=== PATIENT | male | born 1975 | race Caucasian/White ===

== ENCOUNTER 2018-06-22 17:47 | Emergency (ER) | payer OTHER ==
--- NOTE | 2018-06-22 18:34 | ED ---
Throat Pain/Nasal Congestion - HPI Summary HPI Summary: This patient is a 42 year old M presenting to ED with a chief complaint of swelling of the upper lip since earlier today after work. The patient takes lisinopril. The CC is described as tingling and swollen. Prior treatment includes 25 mg Benadryl. The patient rates the pain 0/10 in severity. Symptoms aggravated by nothing. Symptoms alleviated by nothing. Patient denies pruritus of the lip. - History of Current Complaint Chief Complaint: EDAllergicReaction Time Seen by Provider: 06/22/18 18:18 Hx Obtained From: Patient Onset/Duration: Sudden Onset, Lasting Hours - since earlier today after work, Still Present - Allergies/Home Medications Allergies/Adverse Reactions: Allergies Allergy/AdvReac Type Severity Reaction Status Date / Time sertraline [From Zoloft] Allergy Mild lethargic Verified 06/22/18 18:10 Home Medications: Home Medications Levocetirizine Dihydrochloride 5 mg PO DAILY 06/22/18 [History Confirmed ] Montelukast Sodium TAB* [Singulair 10 MG TAB*] 10 mg PO DAILY 06/22/18 [History Confirmed 06/22/18] Pantoprazole Sodium [Protonix] 20 mg PO DAILY 06/22/18 [History Confirmed ] buPROPion TAB* [Wellbutrin TAB*] PO DAILY 06/22/18 [History] metFORMIN* [Glucophage 500 MG TAB *] 500 mg PO DAILY 06/22/18 [History Confirmed 06/22/18] PMH/Surg Hx/FS Hx/Imm Hx Endocrine/Hematology History: Reports: Hx Diabetes GI History: Reports: Other GI Disorders - Gall stone pancreatitis - Immunization History Immunizations Up to Date: Yes Infectious Disease History: No Infectious Disease History: Denies: Traveled Outside the [place] in Last 30 Days - Family History Known Family History: Positive: Other Family History: No known allergy to lisinopril - Social History Alcohol Use: None Substance Use Type: Reports: None Smoking Status (MU): Never Smoked Tobacco Review of Systems Negative: Fever Positive: Other - swelling of upper lip (tingling and swollen; not pruritus) All Other Systems Reviewed And Are Negative: Yes Physical Exam - Summary Physical Exam Summary: Appearance: Well appearing, no pain distress Skin: warm, dry, reflects adequate perfusion Head/face: normal Eyes: EOMI, KIMBERLEE ENT: normal Neck: supple, non-tender Respiratory: CTA, breath sounds present Cardiovascular: RRR, pulses symmetrical Abdomen: non-tender, soft Bowel Sounds: present Musculoskeletal: normal, strength/ROM intact Neuro: normal, sensory motor intact, A&Ox3 Triage Information Reviewed: Yes Vital Signs On Initial Exam: Initial Vitals Temp Pulse Resp BP Pulse Ox 97.4 F 90 16 137/95 97 06/22/18 17:50 06/22/18 17:50 06/22/18 17:50 06/22/18 17:50 06/22/18 17:50 Vital Signs Reviewed: Yes Diagnostics - Vital Signs Vital Signs Temp Pulse Resp BP Pulse Ox 06/22/18 17:50 97.4 F 90 16 137/95 97 - Laboratory Lab Statement: Any lab studies that have been ordered have been reviewed, and results considered in the medical decision making process. 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 He is on lisinopril which is likely causative of this angioedema. He has no other symptoms and in fact, didn't notice the swelling until he got to work and was told by coworkers. He has been taking Benadryl without any effect. He has no tongue or airway swelling. There were no hives or other allergic type symptoms. We stopped his lisinopril in favor of losartan and will have him follow-up with primary care closely for blood pressure recheck. He was also given a single dose of steroids here and Pepcid. We do not expect that this will cause great benefit. - Differential Diagnoses Differential Diagnoses: Other - Allergic reaction versus NITESH inhibitor angioedema - Diagnoses Provider Diagnoses: NITESH inhibitor-aggravated angioedema, Adverse effects of medication Discharge - Sign-Out/Discharge Documenting (check all that apply): Patient Departure - Discharge Plan Condition: Improved Disposition: HOME Prescriptions: Losartan Potassium [Cozaar] 50 mg PO DAILY #30 tablet Patient Education Materials: Angioedema (ED) Referrals: Gino Strong MD [Primary Care Provider] - Additional Instructions: STOP Lisinopril. Return with increased swelling, difficulty breathing, worse, new symptoms or other concerns. Call Your doctor first thing in the morning to have blood pressure rechecked on new medication. - Billing Disposition and Condition Condition: IMPROVED Disposition: Home - Attestation Statements Document Initiated by Scribe: Yes Documenting Scribe: Pascual Mary Provider For Whom Scribe is Documenting (Include Credential): Rui Barbour MD Scribe Attestation: I, Pascual Mary, scribed for Riu Barbour MD on 06/22/18 at 1920. Scribe Documentation Reviewed: Yes Provider Attestation: The documentation as recorded by the Pascual boothe accurately reflects the service I personally performed and the decisions made by me, Rui Barbour MD
[2018-06-22] MEDS ORDERED: Famotidine TAB* 20 MG PO ONE (18:39)
[2018-06-22] MEDS ORDERED: Dexamethasone TAB* 4 MG PO ONE (18:39)
[2018-06-22 19:00] VITALS: BP 131/87
== END 2018-06-22 18:59 | disposition home or self-care (01) ==
LOC: ED 17:47
DX: T78.3XXA Angioneurotic edema, initial encounter (principal); T46.4X5A Adverse effect of angiotensin-converting-enzyme inhibitors, initial encounter; Y92.9 Unspecified place or not applicable; E11.9 Type 2 diabetes mellitus without complications; Z79.84 Long term (current) use of oral hypoglycemic drugs; Z79.899 Other long term (current) drug therapy; Z91.030 Bee allergy status; Z88.8 Allergy status to other drugs, medicaments and biological substances
CPT/HCPCS: 99282; A9270-GY; J8540